=== PATIENT | male | born 1980 | race Asian ===

== ENCOUNTER 2018-07-18 09:37 | Emergency (ER) | payer OTHER ==
[2018-07-18] MEDS ORDERED: PROPARACAINE 0.5% OPHTH DROPS 15 ML RIGHTEYE STA (09:54)
[2018-07-18 09:55] VITALS: BP 141/94
--- NOTE | 2018-07-18 09:55 | ED Physician Documentation ---
PD HPI OPHTHO - Stated complaint Stated Complaint: LEFT EYE SWELLING - History obtained from History obtained from: Patient - History of Present Illness Timing - onset: Today Timing - duration: Days (1) Timing - details: Abrupt onset, Still present Location: Left Quality / character: Aching Associated symptoms: Redness, Tearing, Matting (when awoke this morning). No: Photophobia, Double vision Contributing factors: No: Exposed to conjunctivitis, FB, Wears contacts Similar symptoms before: Has not had sx before Recently seen: Not recently seen Review of Systems Eyes: denies: Loss of vision, Decreased vision, Photophobia Nose: denies: Rhinorrhea / runny nose, Congestion Throat: denies: Sore throat Respiratory: denies: Cough PD PAST MEDICAL HISTORY - Past Medical History HEENT: None - Present Medications Home Medications: Ambulatory Orders Medication Instructions Recorded Confirmed Sulfamethox/Trimeth 800/160 1 each PO BID #10 tablet 07/18/18 [Bactrim Ds 800/160] - Allergies Allergies/Adverse Reactions: Allergies Allergy/AdvReac Type Severity Reaction Status Date / Time No Known Drug Allergies Allergy Verified 07/18/18 09:51 PD ED PE NORMAL - Vitals Vital signs reviewed: Yes - General General: Alert and oriented X 3, No acute distress, Well developed/nourished - HEENT HEENT: PERRL (with left eyelie having redness and some tenderness medial aspect. There is spot of purulence at medial canthus. The lower lid is not tender. The upper has tenderness medially, with redness in area ), EOMI, Ears normal, Pharynx benign - Neck Neck: Supple, no meningeal sign, No adenopathy - Cardiac Cardiac: RRR, No murmur - Respiratory Respiratory: Clear bilaterally PD ED PE EXPANDED - Eyes Eyes: Left eye, Exudate, Normal corneas, Anterior chambers clear. No: Corneal FB, Corneal abrasion Results - Vitals Vitals: Vital Signs - 24 hr 07/18/18 09:52 Temperature 36.5 C Heart Rate 78 Respiratory 16 Rate Blood Pressure 141/94 H O2 Saturation 99 Oxygen O2 Source Room air PD MEDICAL DECISION MAKING - ED course Complexity details: considered differential (seems redness medial upper eyelid with purulent drainage. ), d/w patient Departure - Departure Disposition: 01 Home, Self Care Clinical Impression: Infection of lacrimal gland Condition: Stable Record reviewed to determine appropriate education?: Yes Instructions: ED [facility] Prescriptions: Sulfamethox/Trimeth 800/160 [Bactrim Ds 800/160] 1 each PO BID #10 tablet Comments: Warm towels and moist towels periodically to the eyelid area to promote drainage. It seems like an infection of the gland within the eyelid. The drainage itself is a good part of the process of getting better but we will go some antibiotics for the part within the gland still. Bactrim twice daily for 5 days. Recheck if not improved over the next 2-3 days. Tylenol or ibuprofen if needed for pain or discomfort. I did do a culture that will result in 2-3 days and will call you if we need to change the antibiotic choice. Discharge Date/Time: 07/18/18 10:37
[2018-07-18] MEDS ORDERED: SULFAMETH/TRIMETH DS 800/160 MG TABLET PO STA (10:18)
== END 2018-07-18 10:37 | disposition home or self-care (01) ==
LOC: ED 09:37
DX: H04.009 Unspecified dacryoadenitis, unspecified lacrimal gland (principal)
CPT/HCPCS: 87070; 99283; A9270; J3490